=== PATIENT | female | born 1995 | race Caucasian/White ===

== ENCOUNTER 2017-12-19 16:54 | Emergency (ER) | payer OTHER ==
[~2017-12-19] VITALS: Ht 165.1 cm; Wt 62.6 kg
[2017-12-19] MEDS ORDERED: PRENATAL GUMMI1 EACH PO (17:05)
[2017-12-19] MEDS ORDERED: ADVAIR HFA 230M12 GM INH (17:05)
[2017-12-19 17:16] LABS: ABSOLUTE BASOPHILS 0.1 thou/uL (0.0-0.2); ABSOLUTE EOSINOPHILS 0.2 thou/uL (0.0-0.7); ABSOLUTE LYMPHOCYTES 4.2 thou/uL (0.8-5.3); ABSOLUTE MONOCYTES 0.6 thou/uL (0.0-1.2); ABSOLUTE NEUTROPHILS 4.3 thou/uL (1.6-8.1); BASOPHILS 0.6 %; EOSINOPHILS 1.8 %; HEMATOCRIT 42.1 % (37.0-47.0); HEMOGLOBIN 14.4 gm/dL (12.0-15.0); LYMPHOCYTES 45.2 %; MCH 31.1 pg (26.0-34.0); MCHC 34.3 g/dL (28.0-37.0); MCV 90.8 fL (80.0-100.0); MPV 7.1 fl. (7.2-11.1); NUCLEATED RBCS 0 /100WBC; PLATELET COUNT* 219 thou/uL (150-400); POLYS 46.4 %; RBC 4.63 mil/uL (4.20-5.00); RDW-CV 13.6 % (10.5-14.5); WBC 9.4 thou/uL (4.0-11.0)
[2017-12-19 17:24] LABS: ANION GAP 8 mmol/L (7-16); BUN 7 mg/dL (7-18); CHLORIDE 103 mmol/L (98-107); CO2 28 mmol/L (21-32); CREATININE 0.6 mg/dL (0.6-1.3); GLUCOSE 107 mg/dL (70-99); POTASSIUM 3.1 mmol/L (3.5-5.1); SODIUM 139 mmol/L (136-145)
[2017-12-19 17:35] LABS: ALBUMIN 4.1 g/dL (3.4-5.0); ALKALINE PHOSPHATASE 57 U/L (46-116); LIPASE 88 U/L (73-393); MAGNESIUM 1.9 mg/dL (1.8-2.4); NT-PRO BRAIN NAT PEPTIDE 26 pg/mL (<300); SGOT 16 U/L (15-37); SGPT 26 U/L (30-65); TOTAL BILIRUBIN 0.4 mg/dL (<0.1-1.0); TOTAL PROTEIN 7.1 g/dL (6.4-8.2); TROPONIN-I LEVEL <0.06 ng/mL (<0.06)
[2017-12-19 17:54] LABS: URINE BILIRUBIN NEGATIVE (Negative); URINE BLOOD NEGATIVE (Negative); URINE CLARITY CLEAR; URINE COLOR STRAW; URINE GLUCOSE-RANDOM NEGATIVE (Negative); URINE KETONES NEGATIVE (Negative); URINE LEUKOCYTES-REFLEX NEGATIVE (Negative); URINE NITRITE-REFLEX NEGATIVE (Negative); URINE PROTEIN NEGATIVE (Negative); URINE SPECIFIC GRAVITY <= 1.005 (1.005-1.030); URINE UROBILINOGEN 0.2 E.U./dl (0.2-1.0)
[2017-12-19 19:55] VITALS: BP 109/66
--- NOTE | 2017-12-20 16:27 | EKG ---
[place] [address] ELECTROCARDIOGRAM REPORT Name: JEREMY SHARMA Room: [facility]#: [id number] Admission: 12/19/17 Attend Phys: Discharge: 12/19/17 Date of : [birth year] Report #: [id number] THIS REPORT FOR: //name// [facility] ED Test Date: 2017-12-19 Test Time: 17:00:35 Pat Name: JEREMY SHARMA Department: Room: Gender: F Recruiting Administrator: CARLOS : 1995 Requested By: Cedrick Alves Order Number: [id number] MD: Eduardo Johnson Measurements Intervals [place] Rate: 101 P: 51 SD: 151 QRS: -12 QRSD: 102 T: -8 QT: 350 QTc: 454 Interpretive Statements Sinus tachycardia Probable left atrial enlargement Incomplete RBBB and LAFB RSR' in V1 or V2, right VCD or RVH No previous ECG available for comparison Electronically Signed On 12-20-2017 16:27:47 CDT by Eduardo Johnson [email or web address] <ELECTRONICALLY SIGNED> By: Eduardo Johnson MD, [facility] 12/20/17 1627 1700 99 Eduardo Johnson MD, [facility] /EPI
--- NOTE | 2017-12-20 16:28 | EKG ---
[place] [address] ELECTROCARDIOGRAM REPORT Name: JEREMY SHARMA Room: [facility]#: [id number] Admission: 12/19/17 Attend Phys: Discharge: 12/19/17 Date of : [birth year] Report #: [id number] THIS REPORT FOR: //name// [facility] Test Date: 2017-12-19 Test Time: 19:36:49 Pat Name: JEREMY SHARMA Department: Room: Gender: F Real Estate Legal Assistant: MILLICENT : 1995 Requested By: Cedrick Alves Order Number: [id number] MD: Eduardo Johnson Measurements Intervals [place] Rate: 89 P: 20 TX: 150 QRS: -28 QRSD: 101 T: 3 QT: 366 QTc: 446 Interpretive Statements Sinus rhythm Borderline left axis deviation RSR' in V1 or V2, probably normal variant Baseline wander in lead(s) I,II,aVR,aVF No previous ECG available for comparison Electronically Signed On 12-20-2017 16:28:36 CDT by Eduardo Johnson [email or web address] <ELECTRONICALLY SIGNED> By: Eduardo Johnson MD, [facility] 12/20/17 1628 35 35 Eduardo Johnson MD, [facility] /EPI
== END 2017-12-19 19:55 | disposition home or self-care (01) ==
LOC: M.ERS 16:54
PROVIDERS: Emergency Medicine Emergency Medical Services
DX: O99.341 Other mental disorders complicating pregnancy, first trimester (principal); O26.891 Other specified pregnancy related conditions, first trimester; R00.2 Palpitations; Z3A.10 10 weeks gestation of pregnancy; Z88.0 Allergy status to penicillin